=== PATIENT | female | born 1950 | race Caucasian/White ===

== ENCOUNTER 2017-07-23 17:49 | Emergency (ER) | payer OTHER ==
[~2017-07-23] VITALS: Ht 172.7 cm; Wt 64.9 kg
--- NOTE | 2017-07-23 17:49 | NUR ---
Patient BIBA ACLS, transferred to bed 9. RN evaluating patient at bedside.
--- NOTE | 2017-07-23 17:50 | NUR ---
PT FERNANDO FROM [facility] FOR HIGH BLOOD SUGER OF 500. EMS STATES THEIR BS WAS ALSO 500, UPON ASSESSMENT ACCU CHECK IS 487, DR RECIO NOTIFIED, NEW ORDERS TO BE CARRIED OUT. PT WITH 20G IV TO LFA. DENIES SOB OR DIZZINESS. PT REPORTS MILD INTERMITTEN N/V. PLACED ON ALL MONITORS, VS STABLE. PENDING MD ANGEL
[2017-07-23 17:53] VITALS: BP 131/74
[2017-07-23] MEDS ORDERED: ONDANSETRON 4 MG/2 ML VIAL IVP ONE (18:20)
[2017-07-23] MEDS ORDERED: NACL 0.9% 1,000 ML IV ONE (18:20)
--- NOTE | 2017-07-23 19:11 | NUR ---
REPORT GIVEN TO ROBBIE LEYVA, CARE TURNED OVER
--- NOTE | 2017-07-23 19:20 | NUR ---
PT RESTING COMFORTABLY IN BED, PT DENIES PAIN, RR EVEN AND UNLABORED. IVF INFUSING WELL. ALL NEEDS MET AT THIS TIME.
[2017-07-23 19:22] LABS: BASOPHILS # (AUTO) 0.1 K/uL (0.00-0.22); EOSINOPHILS # (AUTO) 0.2 K/uL (0-0.4); EOSINOPHILS % (AUTO) 2.8 % (0.0-4.0); HEMATOCRIT 45.2 % (36-48); HEMOGLOBIN 15.6 g/dL (12.0-16.0); LYMPHOCYTES # (AUTO) 2.6 K/uL (2.5-16.5); LYMPHOCYTES % (AUTO) 42.5 % (20.5-51.1); MEAN CORPUSCULAR HEMOGLOBIN 34 pg (27-31); MEAN CORPUSCULAR HGB CONC 35 g/dL (33-37); MEAN CORPUSCULAR VOLUME 97.2 fL (80-94); NEUTROPHILS # (AUTO) 2.3 K/uL (1.8-7.7); NEUTROPHILS % (AUTO) 37.7 % (42.2-75.2); PLATELET COUNT (AUTO) 135 K/uL (140-450); RED BLOOD CELL COUNT(AUTO) 4.65 MIL/uL (4.20-5.40); WHITE BLOOD COUNT (AUTO) 6.1 K/uL (4.8-10.8)
[2017-07-23] MEDS ORDERED: INSULIN REGULAR, HUMAN 100 UNIT/ML VIAL IVP ONE (19:35)
[2017-07-23 19:47] LABS: APPEARANCE,URINE CLEAR (CLEAR); BILIRUBIN,URINE NEGATIVE (NEGATIVE); BLOOD, URINE NEGATIVE (NEGATIVE); COLOR,URINE YELLOW (YELLOW); LEUKOCYTE ESTERASE ,URINE NEGATIVE (NEGATIVE); NITRITE, URINE NEGATIVE (NEGATIVE); PH,URINE 5.5 (5.0-9.0); UGLUCOSE NEGATIVE (NEGATIVE)
[2017-07-23 19:50] LABS: ANION GAP 10.7 (8-16); ASPARTATE AMINOTRANSFERASE 60 U/L (15-37); CARBON DIOXIDE 30.4 mmol/L (21-32); CHLORIDE 98 mmol/L (98-107); CREATININE 1.7 mg/dL (0.6-1.3); GFR ARICAN-AMERICAN 39 mL/min (>90); POTASSIUM 3.1 mmol/L (3.5-5.1); SODIUM SERUM 136 mmol/L (136-145); TOTAL BILIRUBIN 0.6 mg/dL (0.0-1.0)
[2017-07-23 19:52] LABS: GLUCOSE 521 mg/dL (74-106); UREA NITROGEN, BLOOD 65 mg/dL (7-18)
[2017-07-23 19:55] LABS: ACETONE, SERUM NEGATIVE (NEGATIVE)
--- NOTE | 2017-07-23 21:09 | NUR ---
PT RESTING COMFORTABLY, DENIES PAIN. BLOOD GLUCOSE 330 AT THIS TIME AFTER REGULAR INSULIN IVP, DR THORNE MADE AWARE
--- NOTE | 2017-07-23 22:24 | NUR ---
PT RESTING COMFORTABLY, RR EVEN AND UNLABORED. ALL NEEDS MET AT THIS TIME.
--- NOTE | 2017-07-23 22:24 | NUR ---
CALLED PT'S SISTER ELIZABETH ESTEVEZ , NOTIFIED THAT PT MAY DISCHARGED SOON, PT'S SISTER STATED THAT SHE IS UNABLE TO PROVIDE TRANSPORT AT THIS TIME OR PT'S OTHER CONTACT PRAVEENA LENNON. AGREED TO HAVE TRANSPORT ARRANGED BACK TO [facility]. CALLED [facility], STATED THAT THEY ARE ABLE TO TAKE PT BACK. PAY PER CLICK STRATEGIST AWARE TO ARRANGE TRANSPORT
--- NOTE | 2017-07-23 23:16 | NUR ---
PT RESTING COMFORTABLY, BLOOD GLUCOSE 268, PT ABLE TO URINATE 500ML CLEAR YELLOW URINE VIA COMMODE. BEN CALLED FOR TRANSPORT BACK TO [facility], ETA 60 MINS.
--- NOTE | 2017-07-23 23:30 | NUR ---
CALLED REPORT TO JOVON AT [facility].
[2017-07-23 23:40] VITALS: BP 121/54
--- NOTE | 2017-07-23 23:40 | NUR ---
Patient discharged with v/s stable. Written and verbal after care instructions given and explained. Patient verbalized understanding. Ambulatory with 1 person assist to taxi service. All questions addressed prior to discharge. Advised to follow up with PMD. Jaden at [facility] made aware of pt's arrival.
== END 2017-07-23 23:40 | disposition home or self-care (01) ==
LOC: MED 17:49
DX: E11.65 Type 2 diabetes mellitus with hyperglycemia (principal); R11.0 Nausea; I10 Essential (primary) hypertension; E07.9 Disorder of thyroid, unspecified
CPT/HCPCS: 36415; 80053; 81003; 81025; 82009; 82803; 85025; 96361; 96374; 99284; J1815; J2405

== ENCOUNTER 2018-04-22 05:22 | Inpatient (IN) | payer OTHER, MEDICAID ==
[~2018-04-22] VITALS: Ht 165.1 cm; Wt 64.0 kg
[2018-04-22] MEDS ORDERED: NACL 0.9% 500 ML IV SCH (05:24)
--- NOTE | 2018-04-22 05:25 | NUR ---
PATIENT PRESENTS TO ED WITH ALOC .FERNANDO PATIENT CAME FROM [facility] FOR FALL, GENERALIZED WEAKNESS. PATIENT WAS LETHARGIC BUT ABLE TO FOLLOW COMMAND .PATIENT CAME WITH IV ON HER LEFT ARM 20G INFUSING WELL. DENIES N/V/D; SKIN IS PINK/WARM/DRY; LUNGS CLEAR BL; HR EVEN AND REGULAR; PT DENIES ANY FEVER, CP, SOB.I/O DONE PER ORDERED.EKG DONE ; VSS; PATIENT POSITIONED FOR COMFORT; HOB ELEVATED; BEDRAILS UP X2; BED DOWN. ER MD MADE AWARE OF PT STATUS.
[2018-04-22 05:30] VITALS: BP 139/48
--- NOTE | 2018-04-22 05:41 | NUR ---
EKG PERFORMED AT BEDSIDE. PT COVERED IN GOWN DURING PROCEDURE
[2018-04-22] MEDS ORDERED: MORPHINE SULFATE 4 MG/ML SYR IVP ONE (05:50)
[2018-04-22] MEDS ORDERED: LISI30TA6 PO (06:29)
[2018-04-22] MEDS ORDERED: GABA-638 PO (06:29)
[2018-04-22] MEDS ORDERED: SYN.1 PO ×2 (06:29→06:40)
[2018-04-22] MEDS ORDERED: AMYL-40 PO (06:40)
[2018-04-22] MEDS ORDERED: ORE25 PO (06:40)
[2018-04-22] MEDS ORDERED: SERT25TA84 PO (06:40)
[2018-04-22] MEDS ORDERED: LISI-420 PO (06:40)
[2018-04-22] MEDS ORDERED: ALBU0.0912 IH (06:40)
[2018-04-22] MEDS ORDERED: PROP20TA29 PO (06:40)
[2018-04-22] MEDS ORDERED: SIMV20TA1 PO (06:40)
[2018-04-22] MEDS ORDERED: FLUT1BLS IH (06:40)
[2018-04-22] MEDS ORDERED: LANTUS SUBQ (06:40)
[2018-04-22 07:17] LABS: APPEARANCE,URINE CLEAR (CLEAR); BILIRUBIN,URINE NEGATIVE (NEGATIVE); BLOOD, URINE NEGATIVE (NEGATIVE); COLOR,URINE YELLOW (YELLOW); LEUKOCYTE ESTERASE ,URINE NEGATIVE (NEGATIVE); NITRITE, URINE NEGATIVE (NEGATIVE); UGLUCOSE 3+ (NEGATIVE)
--- NOTE | 2018-04-22 07:30 | NUR ---
REPORT GIVEN TO JAMAR AVALOS. PATIENT IN STABLE CONDITION.
[2018-04-22 07:31] LABS: RBC,URINE 0-5 (RARE) /HPF (0-5); WBC,URINE 0-5 (RARE) /HPF (0-5)
--- NOTE | 2018-04-22 07:35 | NUR ---
4mg morphine wasted already given by RN Sarbjit earlier and charted late. Witnessed by ROBBIE Faria.
[2018-04-22 07:43] LABS: MEAN CORPUSCULAR VOLUME 103.5 fL (80-94); WHITE BLOOD COUNT (AUTO) 14.8 K/uL (4.8-10.8)
[2018-04-22 07:56] LABS: BASOPHILS % (AUTO) 0.1 % (0.0-2.0); EOSINOPHILS % (AUTO) 0.3 % (0.0-4.0); HEMOGLOBIN 13.4 g/dL (12.0-16.0); LYMPHOCYTES # (AUTO) 2.5 K/uL (2.5-16.5); MEAN CORPUSCULAR HEMOGLOBIN 34 pg (27-31); MEAN CORPUSCULAR HGB CONC 33 g/dL (33-37); MONOCYTES # (AUTO) 1.1 K/uL (0.8-1.0); MONOCYTES % (AUTO) 7.7 % (1.7-9.3); NEUTROPHILS # (AUTO) 11.1 K/uL (1.8-7.7); NEUTROPHILS % (AUTO) 74.9 % (42.2-75.2); PLATELET COUNT (AUTO) 206 K/uL (140-450); RED BLOOD CELL COUNT(AUTO) 3.96 MIL/uL (4.20-5.40); RED CELL DISTRIBUTION WIDTH 14.5 % (11.6-13.7)
[2018-04-22 07:58] LABS: PROTHROMBIN TIME 11.1 secs (10.8-13.4)
[2018-04-22 08:03] LABS: ALBUMIN 2.4 g/dL (3.4-5.0); ANION GAP 11.8 (8-16); CARBON DIOXIDE 29.4 mmol/L (21-32); CREATININE 1.9 mg/dL (0.6-1.3); POTASSIUM 3.2 mmol/L (3.5-5.1); TOTAL BILIRUBIN 0.7 mg/dL (0.0-1.0)
[2018-04-22] MEDS ORDERED: INSULIN REGULAR, HUMAN 100 UNIT/ML VIAL IVP ONE (08:10)
[2018-04-22] MEDS ORDERED: NACL 0.9% 2,000 ML IV SCH (08:10)
[2018-04-22] MEDS ORDERED: THIAMINE 200 MG/2 ML VIAL IM ONE (08:10)
--- NOTE | 2018-04-22 08:23 | NUR ---
AND JAMAR RN NOTIFIED OF LAB REPORT TROPONIN 0.124
[2018-04-22] MEDS ORDERED: KCL 20 MEQ/WATER INJ PREMIX 100 ML IV ONE (08:30)
--- NOTE | 2018-04-22 08:40 | NUR ---
22GA IV LEFT WRIST INFILTRATED---CATHETER REMOVED HEEL WARMER APPLIED TO SMALL SWELLING INFILTRATION SITE---PT DENIES PAIN AT THIS TIME
[2018-04-22 08:47] LABS: FREE T4 (FREE THYROXINE) 1.63 ng/dL (0.76-1.46); MAGNESIUM 2.2 mg/dL (1.8-2.4); THYROID STIMULATING HORMONE 0.16 uIU/mL (0.34-3.74)
[2018-04-22] MEDS ORDERED: NACL 0.9% 1,000 ML IV SCH (08:48)
[2018-04-22] MEDS ORDERED: ONDANSETRON 4 MG/2 ML VIAL IM/IVP PRN (08:50)
[2018-04-22] MEDS ORDERED: HYDROcodone/APAP 5/325 MG 1 TAB TAB PO PRN (08:50)
[2018-04-22] MEDS ORDERED: DOCUSATE SODIUM 100 MG GELCAP PO PRN (08:50)
[2018-04-22] MEDS ORDERED: LORazepam 2 MG/ML VIAL IM/IVP PRN (08:50)
--- NOTE | 2018-04-22 08:52 | NUR ---
2nd 1 liter 0.9% NS given via 18 g Lt ej inserted by ROBBIE Benson.
[2018-04-22] MEDS ORDERED: NITROGLYCERIN 0.4 MG TAB SL PRN (09:10)
--- NOTE | 2018-04-22 09:22 | NUR ---
PT TAKEN TO ICU BY ROBBIE ROLDAN AND EMT MK
[2018-04-22] MEDS ORDERED: INSULIN LISPRO SLIDING SCALE 100 UNITS/ML VIAL SUBQ PRN (09:30)
--- NOTE | 2018-04-22 09:30 | NUR ---
ADMITTED PT FROM ER BY NICO. PT LETHARGIC, ABLE TO FOLLOW COMMANDS BUT PT DOES WANT TO TALK. BEDSIDE MONITOR SHOWS SB-SR. ON O2 NC 2L/MIN. CLEAR LUNG SOUND .PT TEMP 97.0 F. GIVE PT EXTRA BLANKET. PT ABLE TO MOVE ALL HER EXTREMITIES, MRSA NARES COLLECTED. WILL CONTINUE TO MONITOR.
--- NOTE | 2018-04-22 09:30 | NUR ---
Patient will be admitted to care of Dr Mejia. Admited to ICU bed 5. Belongings list completed. Report to ROBBIE Arroyo.
--- NOTE | 2018-04-22 09:41 | NUR ---
FINGER BS CHECKED 403, DR. PIERRE MADE AWARE.
[2018-04-22 09:43] LABS: BARBITURATE, URINE NEG. ng/ml (NEG <=200); BENZODIAZEPINE, URINE NEG. ng/mL (NEG <=200); CANNABINOID, URINE NEG. ng/mL (NEG <=50); COCAINE, URINE NEG. ng/mL (NEG <=300); OPIATE, URINE NEG. ng/mL (NEG <=2000); PHENCYCLIDINE SCREEN,URINE NEG. ng/mL (NEG <=25)
[2018-04-22] MEDS: BLOOD GLUCOSE MONITORING 1 DEV DEV FS SCH ×8 (09:43→21:40)
[2018-04-22 09:49] LABS: CHOL/HDL RATIO 3.9 (1-4.5); FREE T4 (FREE THYROXINE) 1.65 ng/dL (0.76-1.46)
[2018-04-22 10:00] VITALS: BP 123/59
--- NOTE | 2018-04-22 11:38 | NUR ---
FINGER BS CHECKED 240, NOTIFIED , PER DR. PIERRE, PT NPO, DO NOT GIVE SLIDING INSULIN COVERAGE, WILL CARRY OUT.
[2018-04-22] MEDS ORDERED: TRAM50TA1 PO (11:40)
[2018-04-22] MEDS ORDERED: ALBUTEROL SULFATE/IPRATROPIU 3 ML SOL IH PRN (11:45)
[2018-04-22 11:48] LABS: ANION GAP 9.4 (8-16); CARBON DIOXIDE 29.4 mmol/L (21-32); CREATININE 1.6 mg/dL (0.6-1.3)
[2018-04-22] MEDS: PIPER/TAZO 2.25GM/D5W PREMIX 50 ML IV SCH ×2 (11:48→17:09)
[2018-04-22 11:49] LABS: POTASSIUM 2.8 mmol/L (3.5-5.1)
[2018-04-22 12:00] VITALS: BP 116/49
[2018-04-22] MEDS ORDERED: PIPER/TAZO 2.25GM/D5W PREMIX 50 ML IV SCH ×2 (12:00→13:00)
[2018-04-22] MEDS ORDERED: CLINICAL MONITORING MC PRN (12:05)
[2018-04-22] MEDS ORDERED: NACL 0.45% 1,000 ML IV SCH (12:25)
[2018-04-22] MEDS ORDERED: POTASSIUM CHLORIDE 40 MEQ, LIDOCAINE MPF 1% - 5 mL VIAL 25 MG in NACL 0.9% 250 ML IV SCH (13:15)
--- NOTE | 2018-04-22 15:20 | NUR ---
DR. RIVERA IN TO SEE PT, WILL FOLLOW UP.
[2018-04-22 16:00] VITALS: BP 109/61
[2018-04-22] MEDS ORDERED: LACTULOSE 20 GM/30 ML UDC PO SCH (16:00)
[2018-04-22] MEDS: DEXT 5% / NACL 0.45% 1,000 ML IV SCH (16:35)
--- NOTE | 2018-04-22 17:00 | NUR ---
PER. DR. PIERRE, HOLD INSULIN DUE TO PT NPO, WILL CARRY OUT.
--- NOTE | 2018-04-22 17:46 | NUR ---
BEDSIDE REPORT GIVEN TO ELIZABETH AVALOS. PT WILL BE TRANSFERRED TO [facility], ACCOMPANIED WITH CHARGE NURSE AND RN.
--- NOTE | 2018-04-22 17:55 | NUR ---
RECEIVED BEDSIDE REPORT FROM FOUNTAIN PEN TURNER. PATIENT BROUGHT TO [facility]. IN STABLE CONDITION. PATIENT NOT RESPONSIVE TO QUESTIONING BUT OBEYS COMMANDS. ABLE TO WALK FROM ICU BED TO [facility] BED WITH MODERATE ASSISTANCE. VITALS STABLE. NO C/O PAIN OR DISCOMFORT. SKIN INTACT. LUNGS CTA. ALL SAFETY PRECAUTIONS IN PLACE, WILL CONTINUE TO MONITOR.
[2018-04-22 18:00] VITALS: BP 121/70
--- NOTE | 2018-04-22 18:59 | NUR ---
PATIENT TRIED TO GET OUT OF BED. BED ALARM IS ON. REORIENTED PATIENT. PATIENT SETTLED BACK IN BED HERSELF. WHEN ASKED WHAT SHE NEEDS HELP WITH, PT IS UNABLE TO VERBALIZE.
--- NOTE | 2018-04-22 19:13 | NUR ---
ATIVAN IVP ADMINISTERED FOR RESTLESSNESS- PT TRYING TO GET OUT OUT OF BED.
--- NOTE | 2018-04-22 19:36 | NUR ---
ENDORSED POC TO PAY AGENT RN. PT IN STABLE CONDITION.
--- NOTE | 2018-04-22 19:40 | NUR ---
RECEIVED PT FROM ELIZABETH RN PT ALERT OX1 CONFUSED UNCOOOPERATIVE IV ON LEFT EXTERNAL JUGULAR INFUSING WELL ON TELETRY SR BED ALARM INITIAL ASSESSMENT DONE
[2018-04-22 20:00] VITALS: BP 133/52
[2018-04-22 20:33] LABS: ANION GAP 12.1 (8-16); CARBON DIOXIDE 25.8 mmol/L (21-32); CREATININE 1.4 mg/dL (0.6-1.3); POTASSIUM 3.9 mmol/L (3.5-5.1)
[2018-04-22] MEDS: GABAPENTIN 300 MG CAP PO SCH (21:54)
[2018-04-22] MEDS: METOPROLOL 25 MG TAB PO SCH (21:55)
--- NOTE | 2018-04-22 22:00 | NUR ---
SPONGE BATH GIVEN LINEN CHANGED PT HAD A BIG BM , REPOSITIONED Q2H
[2018-04-22] MEDS: INSULIN LISPRO SLIDING SCALE 100 UNITS/ML VIAL SUBQ PRN (22:05)
[2018-04-23] VITALS: BP 114/54
[2018-04-23] MEDS: PIPER/TAZO 2.25GM/D5W PREMIX 50 ML IV SCH ×2 (00:02→06:21)
[2018-04-23] MEDS: DEXT 5% / NACL 0.45% 1,000 ML IV SCH (00:09)
[2018-04-23] MEDS: INSULIN LISPRO SLIDING SCALE 100 UNITS/ML VIAL SUBQ PRN ×5 (01:05→23:43)
--- NOTE | 2018-04-23 01:31 | NUR ---
BLOOD SUGAR TEST 169 COVERAGE WITH 2 UNITS SUBQ HUMALOG FOLLOW PROTOCOL ON TELEMETRY SR INVERTED T
--- NOTE | 2018-04-23 01:32 | NUR ---
PT HAS LIQUID STOOL ON LACTULOSE SPONGE BATH GIVEN , LINEN CHANGED
[2018-04-23 04:00] VITALS: BP 150/68
[2018-04-23] MEDS: BLOOD GLUCOSE MONITORING 1 DEV DEV FS SCH ×7 (04:00→23:41)
--- NOTE | 2018-04-23 04:00 | NUR ---
PT SLEEPING REPOSITIONED AND LINEN CHANGED N TELE SB
--- NOTE | 2018-04-23 05:48 | NUR ---
SPONGE BATH GIVEN LINEN CHANGED A BIG BM IV ON LEFT EXTERNAL JUGULAR INFUSING WELL ON TELEMETRY SB
[2018-04-23] MEDS: NACL 0.45% 1,000 ML IV SCH ×2 (06:21→21:20)
[2018-04-23 06:28] LABS: BASOPHILS % (AUTO) 0.1 % (0.0-2.0); EOSINOPHILS # (AUTO) 0.3 K/uL (0-0.4); EOSINOPHILS % (AUTO) 1.7 % (0.0-4.0); HEMATOCRIT 27.4 % (36-48); HEMOGLOBIN 9.1 g/dL (12.0-16.0); LYMPHOCYTES # (AUTO) 3.6 K/uL (2.5-16.5); LYMPHOCYTES % (AUTO) 20.6 % (20.5-51.1); MEAN CORPUSCULAR HEMOGLOBIN 34 pg (27-31); MEAN CORPUSCULAR HGB CONC 33 g/dL (33-37); MONOCYTES # (AUTO) 1.3 K/uL (0.8-1.0); MONOCYTES % (AUTO) 7.3 % (1.7-9.3); NEUTROPHILS # (AUTO) 12.2 K/uL (1.8-7.7); NEUTROPHILS % (AUTO) 70.3 % (42.2-75.2); PLATELET COUNT (AUTO) 148 K/uL (140-450); RED BLOOD CELL COUNT(AUTO) 2.64 MIL/uL (4.20-5.40); WHITE BLOOD COUNT (AUTO) 17.3 K/uL (4.8-10.8)
--- NOTE | 2018-04-23 06:43 | NUR ---
PT WILL BE ENDORSED TO DAY SHIFT FOR CONTINUITY OF CARE
[2018-04-23 06:59] LABS: ANION GAP 8.3 (8-16); CARBON DIOXIDE 26.8 mmol/L (21-32); CREATININE 1.3 mg/dL (0.6-1.3); MAGNESIUM 1.6 mg/dL (1.8-2.4); PHOSPHORUS 1.4 mg/dL (2.5-4.9); POTASSIUM 3.1 mmol/L (3.5-5.1)
--- NOTE | 2018-04-23 07:10 | NUR ---
RECEIVED REPORT FROM PIANOS AND ORGANS SALESPERSON NURSE. PATIENT LYING DOWN IN BED SLEEPING, AROUSABLE BY VOICE. NO DISTRESS NOTED. AAOX1, CALM, COOPERATIVE, SKIN COLOR APPROPRIATE TO ETHNICITY, WARM TO TOUCH. SKIN IS INTACT. LUNGS CTA ON ALL LOBES. IV SITE INTACT, PATENT, AND INFUSING IVF PER MD ORDERS. ABDOMEN SOFT. STEINBERG CATHETER IN PLACE. SAFETY MEASURES IN PLACE, CALL LIGHT WITHIN REACH. WILL CONTINUE TO MONITOR.
[2018-04-23] MEDS ORDERED: VANCOMYCIN PER PHARMACY MC PRN (07:15)
[2018-04-23 08:00] VITALS: BP 117/47
--- NOTE | 2018-04-23 08:06 | NUR ---
PATIENT HAS BEEN SCREENED AND CATEGORIZED HIGH NUTRITION RISK. PATIENT WILL BE SEEN WITHIN 1-2 DAYS OF ADMISSION. 04/23/[address]
[2018-04-23 08:15] LABS: T4 (THYROXINE) 8.2 ug/dL (4.5-12.0)
[2018-04-23] MEDS: PANTOPRAZOLE 40 MG INJ VIAL IVP SCH (08:34)
--- NOTE | 2018-04-23 08:41 | NUR ---
DR. CODY AND DR. CASTANEDA AT BEDSIDE REVIEWING PLAN OF CARE WITH PATIENT. PATIENT DIFFICULT TO AROUSE EVEN WITH PAIN. LANTUS INSULIN NOT GIVEN AT THIS TIME DUE TO DECREASED GLUCOSE AND PATIENT IS NPO. WILL CONTINUE TO MONITOR.
[2018-04-23] MEDS: METOPROLOL 25 MG TAB PO SCH ×2 (08:46→21:12)
[2018-04-23] MEDS: LISINOPRIL 20 MG TAB PO SCH (08:46)
[2018-04-23] MEDS ORDERED: RIFAXIMIN 550 MG TAB PO SCH (09:00)
[2018-04-23] MEDS ORDERED: ASPIRIN 81 MG TAB.CHEW PO SCH (09:00)
[2018-04-23] MEDS ORDERED: LISINOPRIL 5 MG TAB PO SCH (09:00)
[2018-04-23] MEDS ORDERED: INSULIN LANTUS 100 UNITS/ML 10 ML VIAL SUBQ SCH (09:00)
[2018-04-23] MEDS ORDERED: LACTULOSE 20 GM/30 ML UDC PO SCH (09:00)
[2018-04-23] MEDS: VANCOMYCIN 750 MG in DEXTROSE 5% 250 ML IV SCH (09:32)
--- NOTE | 2018-04-23 09:50 | NUR ---
ASSISTED PHOTOLITHOGRAPHER IN CLEANING PATIENT. NGTUBE INSERTED PER MD ORDERS. AWAITING FOR XRAY CONFIRMATION FOR NGTUBE PLACEMENT BEFORE ADMINISTERING MEDICATIONS THROUGH NGTUBE. WILL CONTINUE TO MONITOR.
[2018-04-23] MEDS ORDERED: SODIUM PHOS / POTASSIUM PHOS 1 PKT PDR PO SCH (10:52)
[2018-04-23] MEDS ORDERED: MAG SULF 2000 MG/WATER PREMIX 50 ML IV SCH (11:00)
[2018-04-23] MEDS ORDERED: cefTRIAXone 2,000 MG in DEXTROSE 5% 100 ML IV SCH (11:00)
[2018-04-23] MEDS ORDERED: POTASSIUM CHLORIDE 40 MEQ, LIDOCAINE 1% 25 MG in NACL 0.9% 250 ML IV SCH (11:30)
[2018-04-23] MEDS: LACTOBACILLUS RHAMNOSUS GG 1 EACH CAP PO SCH (11:30)
[2018-04-23] MEDS: HYDROCHLOROTHIAZIDE 25 MG TAB PO SCH (11:30)
[2018-04-23] MEDS: levETIRAcetam 500 MG TAB PO SCH ×2 (11:30→21:12)
[2018-04-23] MEDS: LACTULOSE 20 GM/30 ML UDC PO SCH ×3 (11:30→22:04)
[2018-04-23] MEDS: GABAPENTIN 300 MG CAP PO SCH ×2 (11:31→21:12)
[2018-04-23] MEDS: ATORVASTATIN 20 MG TAB PO SCH (11:31)
--- NOTE | 2018-04-23 11:51 | NUR ---
PATIENT LYING DOWN IN BED SLEEPING, LETHARGIC. NGTUBE TIP IS IN STOMACH. SCHEDULED MEDICATIONS DUE GIVEN. ECHOCARDIOGRAM BEING DONE AT BEDSIDE AT THIS TIME. WILL CONTINUE TO MONITOR.
[2018-04-23] MEDS: AMPICILLIN 2,000 MG in NACL 0.9% 100 ML IV SCH ×2 (12:54→18:00)
--- NOTE | 2018-04-23 13:14 | NUR ---
S.T. NOTE Physician order for bedside swallow eval received, chart reviewed, attempted once at 12:30 while pt was having abd US performed and again from [id number]. Pt obtunded; unarousable to multiple stimuli and noted to have had a large BM. D/w family (sister and [id number]) that pt is not appropriate for eval at this time with plan to reattempt tomorrow if appropriate. Notified ROBBIE Muñoz re: holding eval and reattempting tomorrow, as well as pt's BM.
[2018-04-23] MEDS: SODIUM PHOS / POTASSIUM PHOS 1 PKT PDR PO SCH ×2 (13:54→22:05)
--- NOTE | 2018-04-23 14:01 | NUR ---
PATIENT HAD A LARGE BM, MAROON COLOR. NOTIFIED MD AND COLLECTED OCCULT BLOOD SAMPLE. ASSISTED EXPLOSIVES TRUCK DRIVER IN CLEANING AND REPOSITIONING PATIENT. SCHEDULED MEDICATIONS DUE GIVEN. WILL CONTINUE TO MONITOR.
--- NOTE | 2018-04-23 14:07 | NUR ---
04/23/18 INITIAL ASSESSMENT COMPLETED PLEASE REFER TO NUTRITION ASSESSMENT UNDER CARE ACTIVITY FOR ESTIMATED NUTRITIONAL NEEDS. 1. CONTINUE GLUCERNA 1.2 @ 55 ML/HR - THIS WILL PROVIDE 1584 KCALS AND 79 G PROTEIN. THIS WILL MEET 100% OF ESTIMATED ENERGY AND PROTEIN NEEDS. 2. CONTINUE FLUSH [address] TO FOLLOW-UP 2-3 DAYS, HIGH RISK EVI TIRADO RD
[2018-04-23 19:03] LABS: ANION GAP 7.2 (8-16); CARBON DIOXIDE 27.8 mmol/L (21-32)
[2018-04-23 19:04] LABS: CREATININE 1.5 mg/dL (0.6-1.3)
--- NOTE | 2018-04-23 19:45 | NUR ---
RECEIVED REPORT FROM ROBBIE MARTÍNEZ FOR CONTINUITY OF CARE. PT NONVERBAL, DOES NOT RESPOND TO STIMULI, NYSTAGMUS NOTED. PT ON ROOM AIR, PER DAY SHIFT RN PT HAS BEEN LIKE THIS THROUGHOUT SHIFT BUT HE WAS TOLD PT WAS ALERT AND CONFUSED LAST NIGHT. PT IS UNABLE TO MAKE NEEDS KNOWN, UNABLE TO FOLLOW ANY COMMANDS. DOES NOT RESPOND TO PAIN. NGT IN PLACE, NO TUBE FEEDING STARTED YET. PT IS TO BE NPO AFTER MIDNIGHT. LARGE WATERY BM NOTED, COLORS BLACK AND RED IN STOOL. FUNGI NOTED IN TOENAILS, BUT SKIN IS INTACT. PT HAS A LEFT EJ 18G IV, ASYMPTOMATIC AND INTACT. VITAL SIGNS WITHIN NORMAL LIMITS. PT STABLE, FLACC 0, NO SIGNS OF DISTRESS NOTED AT THIS TIME. PT POSITIONED FOR COMFORT. BED IN LOWEST POSITION, BED ALARM ON. WILL CONTINUE TO MONITOR.
--- NOTE | 2018-04-23 20:35 | NUR ---
PT TO CT. WILL GO WITH PT, PT TO BE TRANSFERRED TO ICU AFTER CT.
--- NOTE | 2018-04-23 21:07 | NUR ---
TRANSFERRED PT FROM CT TO ICU, GAVE REPORT TO ANTIQUE COLLECTORROBBIE NORTON.
--- NOTE | 2018-04-23 21:10 | NUR ---
PATIENT TRANSFERRED FROM [facility] VIA [facility] WITH 2 ASSISTANCE. PATIENT UNRESPONSIVE, NON SPONTANEOUS EYES OPENING. BILATERAL LUNGS SOUND CLEAR, ON ROOM AIR, BREATHING EVEN AND UNLABORED. NO ACUTE DISTRESS NOTED. NGT TO LEFT NARE, PLACEMENT CHECKED, NO RESIDUAL AT THIS TIME. SKIN IS WARM TO TOUCH AND INTACT. STEINBERG CATH IN PLACE WITH CLEAR YELLOW URINE NOTED. ACTIVE BOWEL SOUND FROM ALL 4QUADS. HOB ELEVATED, BED IN LOW POSITION, CALL LIGHT WITHIN REACH. WILL CONTINUE TO MONITOR.
--- NOTE | 2018-04-23 21:20 | NUR ---
ADMINISTERED SCHEDULED MEDICATIONS ORDERED VIA NGT. TOLERATED WELL. NO ACUTE DISTRESS NOTED. FLACC 0.
--- NOTE | 2018-04-23 21:45 | NUR ---
ORDER FROM DR GARCIA; GI; IN THE CHART, TO GIVE PT 80MG IVP PROTONIX THEN START IV DRIP AT 8MG/HR; VERIFIED WITH DR PIERRE THE DOSE ON THE PROTONIX IVP; SAID OK TO ADMIN 80MG IVP.CARRIED OUT.
--- NOTE | 2018-04-23 21:50 | NUR ---
STARTED TUBE FEEDING ORDERED, GLUCERNA 1.2 10ML/HR WITH WATER FLUSH 110ML Q6HR. GOAL IS 55ML/HR, WLL INCREASE EVERY HOURLY. WILL CONTINUE TO MONITOR.
[2018-04-23 22:00] VITALS: BP 153/60
[2018-04-23] MEDS ORDERED: PANTOPRAZOLE 40 MG INJ VIAL IVP SCH (22:15)
[2018-04-23] MEDS: PANTOPRAZOLE 80 MG in NACL 0.9% 100 ML IV SCH (22:20)
--- NOTE | 2018-04-23 22:20 | NUR ---
ADMINISTERED PROTONIX IVP AND DRIP ORDERED. WILL CONTINUE TO MONITOR.
[2018-04-23] MEDS ORDERED: PANTOPRAZOLE 40 MG INJ VIAL ONE (22:24)
[2018-04-23 22:45] LABS: HEMATOCRIT 29.5 % (36-48); HEMOGLOBIN 9.8 g/dL (12.0-16.0)
--- NOTE | 2018-04-23 22:50 | NUR ---
DR. PARADA AT BEDSIDE WITH TO CHECK THE PATIENT, WILL CONTINUE TO MONITOR. Addendum: 04/23/18 at 2305 by Maelna Santiago RN INCREASED TUBE FEEDING TO 20ML/HR.
[2018-04-23] MEDS ORDERED: NACL 0.9% IV SCH (23:00)
[2018-04-23] MEDS ORDERED: ACYCLOVIR IV SCH (23:00)
[2018-04-23] MEDS ORDERED: ACYCLOVIR 500 MG VIAL IV ONE ×2 (23:27→23:40)
[2018-04-24] VITALS (12 sets, daily range): BP systolic 104–153; BP diastolic 50–78
--- NOTE | 2018-04-24 | NUR ---
BS CHECKED 193, ADMINISTERED 2 UNITS OF INSULIN AND IV ABX ORDERED. NO ACUTE DISTRESS NOTED. SB ON THE MONITOR. WILL CONTINUE TO MONITOR.
[2018-04-24 00:17] LABS: HEMATOCRIT 27.5 % (36-48)
[2018-04-24] MEDS: AMPICILLIN 2,000 MG in NACL 0.9% 100 ML IV SCH ×6 (00:56→20:48)
[2018-04-24] MEDS: NACL 0.45% 1,000 ML IV SCH ×3 (02:30→20:49)
--- NOTE | 2018-04-24 03:00 | NUR ---
TUBE FEEDING REACHED TO GOAL 55ML/HR AT THIS TIME. RESIDUAL 10CC NOTED. SB ON THE MONITOR. NO ACUTE DISTRESS NOTED BUT STILL LETHARGIC. FLACC 0. WILL CONTINUE TO MONITOR.
[2018-04-24] MEDS: BLOOD GLUCOSE MONITORING 1 DEV DEV FS SCH ×5 (03:47→20:49)
[2018-04-24] MEDS: INSULIN LISPRO SLIDING SCALE 100 UNITS/ML VIAL SUBQ PRN ×5 (03:47→21:12)
--- NOTE | 2018-04-24 05:00 | NUR ---
PROVIDED MORNING CARE, SMALL AMOUNT BLACK AND RED COLOR LIQUID BM NOTED. BS CHECKED 154 NOTED, ADMINISTERED 2UNIT OF INSULIN. WILL CONTINUE TO MONITOR.
[2018-04-24] MEDS: LEVOTHYROXINE 0.088 MG TAB PO SCH (05:47)
[2018-04-24 06:23] LABS: BASOPHILS % (AUTO) 0.2 % (0.0-2.0); EOSINOPHILS # (AUTO) 0.9 K/uL (0-0.4); EOSINOPHILS % (AUTO) 5.3 % (0.0-4.0); HEMATOCRIT 26.5 % (36-48); HEMOGLOBIN 8.8 g/dL (12.0-16.0); LYMPHOCYTES # (AUTO) 5.1 K/uL (2.5-16.5); MEAN CORPUSCULAR HEMOGLOBIN 35 pg (27-31); MEAN CORPUSCULAR HGB CONC 33 g/dL (33-37); MEAN CORPUSCULAR VOLUME 104.9 fL (80-94); MONOCYTES # (AUTO) 1.9 K/uL (0.8-1.0); MONOCYTES % (AUTO) 10.9 % (1.7-9.3); NEUTROPHILS # (AUTO) 9.6 K/uL (1.8-7.7); NEUTROPHILS % (AUTO) 54.6 % (42.2-75.2); PLATELET COUNT (AUTO) 136 K/uL (140-450); RED BLOOD CELL COUNT(AUTO) 2.53 MIL/uL (4.20-5.40); RED CELL DISTRIBUTION WIDTH 14.7 % (11.6-13.7); WHITE BLOOD COUNT (AUTO) 17.6 K/uL (4.8-10.8)
[2018-04-24 07:19] LABS: CARBON DIOXIDE 27.7 mmol/L (21-32); CREATININE 1.2 mg/dL (0.6-1.3)
[2018-04-24 07:27] LABS: MAGNESIUM 2.1 mg/dL (1.8-2.4); PHOSPHORUS 2.7 mg/dL (2.5-4.9)
--- NOTE | 2018-04-24 07:30 | NUR ---
RECEIVED REPORT FROM VENEER JOINER NURSE AT BEDSIDE, PT IS LETHARGIC, UNABLE TO FOLLOW COMMANDS AND MAKE NEEDS KNOWN, VSS, FLACC 0, NO S/S OF DISTRESS, DIMINISHED LUNG SOUNDS DARVIN. ON RA, O2 SAT 97%, SB ON RETOUCHING OPERATOR, SOFT ABDOMEN WITH ACTIVE BOWEL SOUNDS, NGT TO LEFT NARES, PLACEMENT CHECKED, RUNNING GLUCERNA AT 55ML/HR, 0 ML RESIDUALS AT THIS TIME, F/C IN PLACE, CLEAR YELLOW URINE NOTED VIA GRAVITY, SKIN IS WARM AND DRY TO TOUCH, NO OPEN WOUND PRESENT, IV SITE TO LEFT EJ 18GA, PATENT AND SL, IV TO RIGHT HAND 22GA, RUNNING PROTONIX AT 10ML/HR AND 1/2 NS AT 100ML/HR, GENERALIZED WEAKNESS NOTED TO ALL EXTREMITIES, HOB ELEVATED TO 30 DEGREES, SAFETY MEASURES IN PLACE, WILL CONTINUE TO MONITOR.
[2018-04-24] MEDS: PANTOPRAZOLE 80 MG in NACL 0.9% 100 ML IV SCH (08:08)
[2018-04-24] MEDS: METOPROLOL 25 MG TAB PO SCH ×2 (08:16→21:38)
[2018-04-24] MEDS: LACTULOSE 20 GM/30 ML UDC PO SCH (08:19)
[2018-04-24] MEDS: cefTRIAXone 2,000 MG in DEXTROSE 5% 100 ML IV SCH ×2 (08:19→21:21)
[2018-04-24] MEDS: PANTOPRAZOLE 40 MG INJ VIAL IVP SCH ×2 (08:19→20:48)
[2018-04-24] MEDS: LACTOBACILLUS RHAMNOSUS GG 1 EACH CAP PO SCH (08:20)
[2018-04-24] MEDS: HYDROCHLOROTHIAZIDE 25 MG TAB PO SCH (08:20)
[2018-04-24] MEDS: ATORVASTATIN 20 MG TAB PO SCH (08:20)
[2018-04-24] MEDS: levETIRAcetam 500 MG TAB PO SCH ×2 (08:20→20:47)
[2018-04-24] MEDS: LISINOPRIL 20 MG TAB PO SCH (08:21)
[2018-04-24] MEDS: GABAPENTIN 300 MG CAP PO SCH ×2 (08:21→20:47)
--- NOTE | 2018-04-24 08:35 | NUR ---
DR. LANDAVERDE CAME IN TO SEE PT AT BEDSIDE, WILL FOLLOW UP WITH NEW ORDERS.
[2018-04-24 08:36] LABS: POTASSIUM 2.7 mmol/L (3.5-5.1)
[2018-04-24] MEDS ORDERED: LACTULOSE 20 GM/30 ML UDC PO SCH ×2 (08:43→09:00)
[2018-04-24] MEDS ORDERED: POTASSIUM CHLORIDE 20% 40 MEQ/15 ML UDC GT SCH (08:43)
[2018-04-24] MEDS: VANCOMYCIN 750 MG in DEXTROSE 5% 250 ML IV SCH (08:44)
[2018-04-24] MEDS ORDERED: POTASSIUM CHLORIDE 40 MEQ, LIDOCAINE MPF 1% - 5 mL VIAL 25 MG in NACL 0.9% 250 ML IV SCH ×7 (09:00→11:00)
[2018-04-24] MEDS ORDERED: INSULIN LANTUS 100 UNITS/ML 10 ML VIAL SUBQ SCH ×3 (09:00→09:16)
[2018-04-24] MEDS ORDERED: NACL 0.9% IV SCH ×3 (09:00→21:00)
[2018-04-24] MEDS ORDERED: ACYCLOVIR IV SCH ×3 (09:00→21:00)
--- NOTE | 2018-04-24 09:00 | NUR ---
DR. CHILDRESS CAME IN TO SEE PT AT BEDSIDE, WILL FOLLOW UP WITH NEW ORDERS.
--- NOTE | 2018-04-24 09:25 | NUR ---
RECEIVED ORDER FOR MRI BRAIN WITHOUT CONTRAST. I CALLED LYNN AT [facility] AND SHE SAID FOR TODAY, HER TECH COMES IN AT 6P.M. AND TOMORROW AT 5P.M. I CALLED [facility] AND SPOKE WITH TANIYA IN RADIOLOGY. THEY DO HAVE OPENING AFTER 10A.M.. I FAXED FACE SHEET, ORDER, QUESTIONAIR TO HER AT [phone]. PHONE [phone]. I CALLED [facility] AND SET UP TRANSPORT, [facility], FOR 10:15A.M. AND I INFORMED TANIYA AT [facility]. [facility] TO STOP IN ER FIRST AND THEY WILL DIRECT THEM TO MRI. I CALLED [facility] AND SPOKE WITH TRINI/DELMAR, [phone], AND INFORMED HER OF THE ORDER FOR MRI AND WE WOULD SEND THE PATIENT OUT FOR THE MRI AND THEN TO RETURN HERE.
[2018-04-24] MEDS ORDERED: PANTOPRAZOLE 40 MG INJ VIAL IVP ONE (09:30)
--- NOTE | 2018-04-24 10:00 | NUR ---
NO S/S OF DISTRESS, VSS, FLACC 0, POSITION CHANGED FOR OFF LOAD PRESSURE.
[2018-04-24] MEDS: SODIUM PHOS / POTASSIUM PHOS 1 PKT PDR PO SCH ×2 (10:25→13:00)
--- NOTE | 2018-04-24 11:44 | NUR ---
RECEIVED A CALL EARLIER THAT [facility] WILL BE DELAYED ABOUT 1 HOUR. I CALLED [facility] AND INFORMED THEM. [facility] HERE TO ARTS AND CRAFTS TEACHER PATIENT NOW. I CALLED [facility] AND SPOKE WITH TANIYA AND TOLD HER THE PATIENT WAS BEING PICKED UP NOW. SHE CHECKED WITH THE TECH, STILL OKAY TO SEND PATIENT. I ALSO INFORMED HER THAT THE PATIENT IS IN DROPLET PRECAUTIONS IN ICU.
--- NOTE | 2018-04-24 11:45 | NUR ---
PT LEFT UNIT WITH [facility] FOR MRI IN [facility], ALL IV MEDICATION AND TUBE FEEDING HELD AT THIS TIME, PT IS STILL LETHARGIC, ABLE TO RESPOND BY NAME, VSS, FLACC 0. ALL THE METAL MATERIES REMOVED.
--- NOTE | 2018-04-24 13:50 | NUR ---
PT IS BACK FROM MRI, POSITIVE RESULT FOR MENINGITIS, PT IS AAOX1, ABLE TO FOLLOW COMMANDS AND MAKE NEEDS KNOW AT THIS TIME, DENIES PAIN, VSS. WILL CONTINUE IV MEDICATIONS.
[2018-04-24 15:00] LABS: HEMATOCRIT 28.5 % (36-48); HEMOGLOBIN 9.3 g/dL (12.0-16.0)
--- NOTE | 2018-04-24 16:00 | NUR ---
PT IS RESTING IN BED, NO S/S OF DISTRESS, VSS, DENIES PAIN, PM AND F/C CARE PROVIDED, POSITION CHANGED FOR OFF LOAD PRESSURE.
[2018-04-24 16:29] LABS: ANION GAP 4.3 (8-16); CARBON DIOXIDE 28.4 mmol/L (21-32); CREATININE 1.3 mg/dL (0.6-1.3); POTASSIUM 3.7 mmol/L (3.5-5.1)
--- NOTE | 2018-04-24 18:00 | NUR ---
PT IS MORE ALERT AND AWAKE, NO S/S OF DISTRESS, DENIES PAIN, VSS, POSITION CHANGED FOR OFF LOAD PRESSURE.
--- NOTE | 2018-04-24 18:50 | NUR ---
DR. JASON CAME IN TO SEE PT AT BEDSIDE, WILL FOLLOW UP WITH NEW ORDERS.
--- NOTE | 2018-04-24 19:25 | NUR ---
RECEIVED BEDSIDE REPORT FROM MORNING SHIFT RNANASTASIIA, FOR CONTINUITY OF CARE. PT AWAKE, AAOX2, TO NAME AND HOSPITAL LOCATION. ON ROOM AIR. SR ON VICE PRESIDENT OF SALES. ABLE TO RESPOND TO COMMANDS/MAKE NEEDS KNOWN. LUNG SOUND DIMINSHED ON UPPER/LOWER BILATERAL LOBES. NGT IN PLACE, NO RESIDUAL, GLUCERNA AT 55ML/HR. BOWEL SOUND HYPOACTIVE. BM IS SMALL, LOOSE, DARK RBOWN. STEINBERG CATH IN PLACE, LIGHT WANDER IN COLOR. LEFT EJ INTACT, SALINE FLUSHED. RIGHT HAND [address], INFUSING 1/2NS AT 125ML/HR, WITH BLOOD RETURN. HOB ELEVATED, BED IN LOWEST POSITION, SCDS ON BILATERAL LEGS. SIDE RAILS UP X4. SKIN IS NORMAL IN COLOR, WARM TO TOUCH, & INTACT. DROPLET PRECAUTIONS MAINTAINED.
--- NOTE | 2018-04-24 19:25 | NUR ---
REPORT GIVEN TO ROPE MAKER NURSE AT BEDSIDE FOR CONTINUE OF CARE, PT IS IN STABLE CONDITION AT THIS TIME.
--- NOTE | 2018-04-24 20:19 | NUR ---
DR PARADA AT BEDSIDE TO SEE PATIENT, AOX 2-3, UPDATED ON PT CONDITION.
[2018-04-24 21:08] LABS: HEMATOCRIT 27.8 % (36-48); HEMOGLOBIN 9.1 g/dL (12.0-16.0)
--- NOTE | 2018-04-24 21:39 | NUR ---
DJ=791/82, RR=15, SATING 97%, HR=71. LOPRESSOR GIVEN PER ORDER.
--- NOTE | 2018-04-24 22:50 | NUR ---
2ND BOWEL MOVEMENT, SMALL, LOOSE, DARK BROWN STOOL. PT ABLE TO ASSIST IN REPOSITIONING. ORAL MOUTH MOISTURIZER GIVEN TO PT DUE TO C/O TONGUE/MOUTH DRYNESS.
[2018-04-24] MEDS: MORPHINE SULFATE 2 MG/ML SYR IVP PRN (22:59)
[2018-04-25] VITALS (9 sets, daily range): BP systolic 119–174; BP diastolic 43–81
[2018-04-25] MEDS: BLOOD GLUCOSE MONITORING 1 DEV DEV FS SCH ×6 (00:08→20:45)
[2018-04-25] MEDS: INSULIN LISPRO SLIDING SCALE 100 UNITS/ML VIAL SUBQ PRN ×6 (00:20→20:46)
--- NOTE | 2018-04-25 01:22 | NUR ---
PT IS SLEEPING, AFEBRILE, VSS, REPOSITIONED FOR PATIENT COMFORT AND PILLOW SUPPORT PROVIDED.
[2018-04-25] MEDS: MORPHINE SULFATE 2 MG/ML SYR IVP PRN ×2 (03:07→08:21)
[2018-04-25] MEDS: NACL 0.45% 1,000 ML IV SCH (03:42)
--- NOTE | 2018-04-25 03:55 | NUR ---
PT AWAKE AT BEDSIDE,AFEBRILE, PAIN MED GIVEN. STEINBERG CATH AND ORAL CARE PROVIDED. SMALL SMEAR ON PAD AND FRESH LINEN/GOWN GIVEN TO PT. PT IS ASSIST OF 1 WITH CARES. AAOX3.
[2018-04-25 06:01] LABS: BASOPHILS % (AUTO) 0.3 % (0.0-2.0); EOSINOPHILS # (AUTO) 0.8 K/uL (0-0.4); EOSINOPHILS % (AUTO) 6.2 % (0.0-4.0); HEMATOCRIT 24.5 % (36-48); LYMPHOCYTES # (AUTO) 3.7 K/uL (2.5-16.5); MEAN CORPUSCULAR HEMOGLOBIN 35 pg (27-31); MEAN CORPUSCULAR HGB CONC 33 g/dL (33-37); MEAN CORPUSCULAR VOLUME 105.7 fL (80-94); MONOCYTES # (AUTO) 1.4 K/uL (0.8-1.0); MONOCYTES % (AUTO) 11.3 % (1.7-9.3); NEUTROPHILS # (AUTO) 6.4 K/uL (1.8-7.7); NEUTROPHILS % (AUTO) 52.2 % (42.2-75.2); PLATELET COUNT (AUTO) 130 K/uL (140-450); RED BLOOD CELL COUNT(AUTO) 2.32 MIL/uL (4.20-5.40); RED CELL DISTRIBUTION WIDTH 15.2 % (11.6-13.7); WHITE BLOOD COUNT (AUTO) 12.2 K/uL (4.8-10.8)
[2018-04-25 06:08] LABS: MAGNESIUM 1.9 mg/dL (1.8-2.4); PHOSPHORUS 2.3 mg/dL (2.5-4.9)
[2018-04-25 06:10] LABS: ANION GAP 6.7 (8-16); CARBON DIOXIDE 25.5 mmol/L (21-32); POTASSIUM 3.2 mmol/L (3.5-5.1)
--- NOTE | 2018-04-25 06:38 | NUR ---
AT BEDSIDE TO SEE PT, UPDATED ON PT CONDITION. PT IS AWAKE AT BEDSIDE. SMALL, LOOSE BM, DARK BROWN IN COLOR. NO SIGNS OF BLOOD IN STOOL. 1 ASSIST, PT ABLE TO REPOSITION SELF IN BED, MOVE UPPER/LOWER EXTREMITIES.
[2018-04-25] MEDS: LEVOTHYROXINE 0.088 MG TAB PO SCH (06:59)
[2018-04-25] MEDS ORDERED: PROBIOTIC SCREEN 1 EA MISC MC PRN (07:20)
--- NOTE | 2018-04-25 07:25 | NUR ---
PROVIDED BEDSIDE REPORT FOR MORNING SHIFT RNLUIS CARLOS, FOR CONTINUITY OF CARE PT IN STABLE CONDITION AT THIS TIME.
--- NOTE | 2018-04-25 07:30 | NUR ---
RECEIVED BEDSIDE REPORT FROM NECKTIE STITCHER NURSE. PT IS AAOX3, ABLE TO FOLLOW COMMANDS AND MAKE NEEDS KNOWN. AFEBRILE. SR-SB ON BONDING SUPERVISOR. PT IS ON ROOM AIR. LUNG SOUNDS DIMINISHED BILATERALLY. ABDOMEN SOFT, NONTENDER WITH ACTIVE BOWEL SOUNDS. NGT IN PLACE TO LEFT NARES, PLACEMENT CONFIRMED, NO RESIDUALS NOTED. PT IS ON TF GLUCERNA AT 55ML/HR WITH WATER FLUSH 110 ML Q6H. STEINBERG CATH IN PLACE DRAINING CLEAR YELLOW URINE VIA GRAVITY. PERIPHERAL IVS G 22 TO RIGHT HAND AND LEFT EJ G18 PATENT AND INTACT. RUNNING 1/2NS AT 125 ML/HR. SKIN IS DRY AND WARM TO TOUCH. HOB ELEVATED TO 30 DEGREES, SAFETY MEASURES IN PLACE. CALL LIGHT WITHIN REACH. NO S/S OF DISTRESS NOTED AT THIS TIME. WILL CONTINUE TO MONITOR.
[2018-04-25] MEDS ORDERED: DEXTROSE 5% 1,000 ML IV SCH (08:05)
[2018-04-25 08:17] LABS: FOLIC ACID 8.9 ng/mL (>3.0)
[2018-04-25] MEDS: PANTOPRAZOLE 40 MG INJ VIAL IVP SCH ×2 (08:19→20:48)
[2018-04-25] MEDS: LACTULOSE 20 GM/30 ML UDC PO SCH (08:19)
[2018-04-25] MEDS: LISINOPRIL 20 MG TAB PO SCH (08:19)
[2018-04-25] MEDS: levETIRAcetam 500 MG TAB PO SCH (08:20)
[2018-04-25] MEDS: HYDROCHLOROTHIAZIDE 25 MG TAB PO SCH (08:20)
[2018-04-25] MEDS: GABAPENTIN 300 MG CAP PO SCH ×2 (08:20→20:49)
[2018-04-25] MEDS: METOPROLOL 25 MG TAB PO SCH ×2 (08:20→20:49)
[2018-04-25] MEDS: ATORVASTATIN 20 MG TAB PO SCH (08:20)
[2018-04-25] MEDS: LACTOBACILLUS RHAMNOSUS GG 1 EACH CAP PO SCH (08:20)
--- NOTE | 2018-04-25 08:25 | NUR ---
DR CODY MADE AWARE OF PATIENT'S K 3.2 AND PHOS 2.3 LEVELS. WILL FOLLOW UP WITH ORDERS
[2018-04-25] MEDS ORDERED: INSULIN LANTUS 100 UNITS/ML 10 ML VIAL SUBQ SCH ×2 (09:00)
[2018-04-25] MEDS ORDERED: ASCORBIC ACID 500 MG TAB PO SCH (09:00)
[2018-04-25] MEDS ORDERED: ASCORBIC ACID 500 MG/5 ML ORASYR NG SCH (09:15)
--- NOTE | 2018-04-25 09:20 | NUR ---
PT HAD A SMALL AMOUNT OF BROWN, LIQUID BOWEL MOVEMENT. CLEANED AND REPOSITIONED. PT TOLERATED WELL.
[2018-04-25] MEDS: SODIUM PHOS / POTASSIUM PHOS 1 PKT PDR PO SCH ×3 (09:24→16:08)
[2018-04-25] MEDS: SODIUM FERRIC GLUCONATE 125 MG in NACL 0.9% 100 ML IV SCH (09:25)
--- NOTE | 2018-04-25 09:30 | NUR ---
MEDICATIONS ADMINISTERED ORDERED. PT TOLERATED WELL.
[2018-04-25] MEDS: ACETAMINOPHEN 325 MG TAB PO PRN ×2 (10:44→16:55)
--- NOTE | 2018-04-25 10:52 | NUR ---
PT C/O MILD HEADACHE. TYLENOL ADMINISTERED ORDERED. WILL CONTINUE TO MONITOR.
[2018-04-25] MEDS ORDERED: POTASSIUM CHLORIDE 40 MEQ, LIDOCAINE 1% 25 MG in NACL 0.9% 250 ML IV SCH (11:00)
--- NOTE | 2018-04-25 11:37 | NUR ---
DR CODY INFORMED OF PATIENT'S HR 47-58. WILL FOLLOW UP.
--- NOTE | 2018-04-25 11:50 | NUR ---
PT STATED SHE IS HALLUCINATING AND SEES FEATHERS AND PEOPLE IN THE ROOM WHEN CLOSES EYES. DR. CODY MADE AWARE. WILL FOLLOW UP AND CONTINUE TO MONITOR.
--- NOTE | 2018-04-25 11:57 | NUR ---
ST EVALUATION AT BEDSIDE. PT ABLE TO FOLLOW COMMANDS. NO DISTRESS NOTED. VSS.
--- NOTE | 2018-04-25 12:04 | NUR ---
NGT DISCONTINUED. PT TOLERATED WELL.
--- NOTE | 2018-04-25 12:10 | NUR ---
Speech Pathology Bedside Swallow eval completed. Please see report for details. Pt presents with mild oral dysphagia c/b difficulty with mastication of solids, likely due to general weakness and poor dental condition. No overt s/s aspiration observed. Pt is able to self-feed with min assist. Recommend: 1) Advance to mechanical soft ground diet, thin liquids ok. Straws ok. 2) P.O. meds as tolerated. 3) Nsg to assist w/ tray set up to promote self-feeding. No further tx indicated at this time. DC to nsg care. Time [id number]
[2018-04-25] MEDS ORDERED: QUEtiapine FUMARATE 25 MG TAB PO SCH (13:16)
[2018-04-25] MEDS ORDERED: SIMETHICONE 40 MG/0.6 ML PO PRN (14:10)
--- NOTE | 2018-04-25 14:36 | NUR ---
EEG BEING DONE AT BEDSIDE. VSS. NO SIGNS OF DISTRESS NOTED. WILL CONTINUE TO MONITOR.
--- NOTE | 2018-04-25 17:20 | NUR ---
PT SEEN BY DR. RAMON. WILL FOLLOW UP ON ORDERS.
--- NOTE | 2018-04-25 18:30 | NUR ---
PT TRANSFERRED TO TELEMETRY ROOM 108B. REPORT GIVEN TO ROBBIE JOHNSON AT BEDSIDE. PT IS IN STABLE CONDITION.
--- NOTE | 2018-04-25 18:35 | NUR ---
RECEIVED BEDSIDE REPORT FROM ICU SHIFT NURSE. PT IS AAOX3, ABLE TO FOLLOW SIMPLE COMMANDS AND MAKE NEEDS KNOWN. VITALS STABLE. AFEBRILE. NO C/O PAIN OR DISCOMFORT. LUNGS CTA. ON TELE MONITOR. F/C IN PLACE DRAINING URINE. IV SITE PATENT AND ASYMPTOMATIC, INFUSING IVF PER MD ORDERS. SKIN INTACT. PT IS AMBULATORY WITH ASSIST, WILL BE ON BEDREST. ALL SAFETY PRECAUTIONS IN PLACE, WILL CONTINUE TO MONITOR.
--- NOTE | 2018-04-25 19:17 | NUR ---
ENDORSED POC TO COMPLIANCE ATTORNEY RN. PT IN STABLE CONDITION.
--- NOTE | 2018-04-25 19:18 | NUR ---
RECEIVED BEDSIDE REPORT FROM AM SHIFT. PT IS AAOX3, ABLE TO FOLLOW SIMPLE COMMANDS AND MAKE NEEDS KNOWN. VITALS STABLE. AFEBRILE. NO C/O PAIN OR DISCOMFORT. ON TELE MONITOR. F/C IN PLACE DRAINING CLEAR YELLOW URINE . IV SITE PATENT AND ASYMPTOMATIC, INFUSING IVF PER MD ORDERS. SKIN INTACT.PT ON BEDREST ALL SAFETY PRECAUTIONS IN PLACE, WILL CONTINUE TO MONITOR
--- NOTE | 2018-04-25 20:37 | NUR ---
DR. PIERRE CALLED FOR BLOOD SUGAR 114MG/DL.BEYOND THE BLOOD SUGAR PROTOCOL. SHE ORDERED TO GIVE PT 10 UNITS OF HUMALOG
[2018-04-25] MEDS: levETIRAcetam 100 MG/ML ORASYR NG SCH (20:47)
[2018-04-25] MEDS: QUEtiapine FUMARATE 25 MG TAB PO SCH (20:48)
--- NOTE | 2018-04-25 21:44 | NUR ---
DR. CONNORS CALLED ASKING FOR AN UPDATE OF THE EEG. SHE ASKED DR. PIERRE TO UPDATE HER.
[2018-04-25] MEDS ORDERED: NACL 0.9% 1,000 ML IV SCH (23:15)
[2018-04-25] MEDS ORDERED: NACL 0.45% 1,000 ML IV SCH (23:35)
--- NOTE | 2018-04-25 23:35 | NUR ---
INFORMED DR. PIERRE THAT IVF EARLIER WAS D5%1000 ML. SHE WILL CHANGE IT SINCE PT AT 2100 HAD A BLOOD GLUCOSE LEVEL OF 414MG/DL.
--- NOTE | 2018-04-25 23:45 | NUR ---
DISCARDED THE ORDER FOR NACL IVF SINCE PHARMACY CALLED THAT NA LEVEL IS 148. DR. PIERRE CHANGED TO /2 NS IVF. CARRIED IT OUT
[2018-04-26] MEDS: BLOOD GLUCOSE MONITORING 1 DEV DEV FS SCH ×6 (00:22→21:40)
[2018-04-26] MEDS: INSULIN LISPRO SLIDING SCALE 100 UNITS/ML VIAL SUBQ PRN ×6 (00:26→21:02)
--- NOTE | 2018-04-26 00:26 | NUR ---
INFORMED DR. YORDY PEDERSON BS ID [id number]/DL. AWARE WE GAVE PT ANOTHER ADDITIONAL 8 UNITS OF HUMALOG.
[2018-04-26 04:00] VITALS: BP 111/44
[2018-04-26] MEDS: LEVOTHYROXINE 0.088 MG TAB PO SCH (06:18)
[2018-04-26 06:31] LABS: BASOPHILS % (AUTO) 0.3 % (0.0-2.0); EOSINOPHILS # (AUTO) 0.5 K/uL (0-0.4); EOSINOPHILS % (AUTO) 4.7 % (0.0-4.0); HEMATOCRIT 25.1 % (36-48); HEMOGLOBIN 8.2 g/dL (12.0-16.0); LYMPHOCYTES # (AUTO) 3.6 K/uL (2.5-16.5); LYMPHOCYTES % (AUTO) 33.8 % (20.5-51.1); MEAN CORPUSCULAR HEMOGLOBIN 35 pg (27-31); MEAN CORPUSCULAR HGB CONC 33 g/dL (33-37); MEAN CORPUSCULAR VOLUME 105.3 fL (80-94); MONOCYTES # (AUTO) 1.1 K/uL (0.8-1.0); NEUTROPHILS # (AUTO) 5.5 K/uL (1.8-7.7); NEUTROPHILS % (AUTO) 51.2 % (42.2-75.2); PLATELET COUNT (AUTO) 109 K/uL (140-450); RED BLOOD CELL COUNT(AUTO) 2.38 MIL/uL (4.20-5.40); RED CELL DISTRIBUTION WIDTH 15.1 % (11.6-13.7); WHITE BLOOD COUNT (AUTO) 10.7 K/uL (4.8-10.8)
[2018-04-26 07:25] LABS: ANION GAP 5.4 (8-16); CARBON DIOXIDE 27.8 mmol/L (21-32); CREATININE 0.9 mg/dL (0.6-1.3); POTASSIUM 3.2 mmol/L (3.5-5.1)
--- NOTE | 2018-04-26 07:28 | NUR ---
ENDORSED TO NEXT SHIFT WITH STABLE VITAL SIGNS AND STABLE CONDITION. FOR CONTINUITY OF CARE.
--- NOTE | 2018-04-26 07:30 | NUR ---
RECEIVED PT FROM [employer] MANAGER NURSE, PT IS AWAKE AND LYING ON THE BED WITH SIDE RAILS UP AND CALL LIGHT WITHIN REACH, FALL AND SAFETY PRECAUTION ENFORCED, BED IN LOW POSITION, PT HAS A PERIPHERAL LINE ON THE RT HAND G. 22 WITH 1/2 NS AT 100ML/HR, INFUSING, INTACT. PT HAS ANOTHER IV LINE ON THE LEFT IJ G.28, ON SALINE LOCK. PT DENIES PAIN AND NO SOB NOTED. NO SIGN OF DISTRESS NOTED AND WILL CONTINUE TO MONITOR PT.
[2018-04-26 08:00] VITALS: BP 117/54
[2018-04-26] MEDS ORDERED: FERROUS SULFATE 300 MG/5 ML UDC NG SCH (08:00)
[2018-04-26] MEDS ORDERED: FERROUS SULFATE 325 MG TABEC PO SCH (08:00)
[2018-04-26 08:28] LABS: MAGNESIUM 1.5 mg/dL (1.8-2.4); PHOSPHORUS 2.4 mg/dL (2.5-4.9)
--- NOTE | 2018-04-26 08:38 | NUR ---
DR. HOLLINGSWORTH CAME TO PT'S ROOM AND SPOKE TO PT, DR. HOLLINGSWORTH ORDERED TO STOP THE IVF OF PT.
--- NOTE | 2018-04-26 08:40 | NUR ---
STOPPED PT'S IVF NOW.
[2018-04-26] MEDS ORDERED: ASCORBIC ACID 500 MG/5 ML ORASYR NG SCH (09:00)
[2018-04-26] MEDS ORDERED: MAG SULF 2000 MG/WATER PREMIX 50 ML IV SCH (09:00)
[2018-04-26] MEDS ORDERED: INSULIN LANTUS 100 UNITS/ML 10 ML VIAL SUBQ SCH (09:00)
[2018-04-26] MEDS ORDERED: NACL 0.9% 1,000 ML IV SCH (09:00)
[2018-04-26] MEDS ORDERED: POTASSIUM CHLORIDE 10 MEQ TABER PO SCH (09:00)
[2018-04-26] MEDS: SODIUM PHOS / POTASSIUM PHOS 1 PKT PDR PO SCH ×3 (09:02→17:02)
[2018-04-26] MEDS: LACTOBACILLUS RHAMNOSUS GG 1 EACH CAP PO SCH (09:03)
[2018-04-26] MEDS: ATORVASTATIN 20 MG TAB PO SCH (09:04)
[2018-04-26] MEDS: LACTULOSE 20 GM/30 ML UDC PO SCH (09:05)
[2018-04-26] MEDS: PANTOPRAZOLE 40 MG INJ VIAL IVP SCH ×2 (09:05→22:46)
[2018-04-26] MEDS: levETIRAcetam 100 MG/ML ORASYR NG SCH ×2 (09:06→20:59)
[2018-04-26] MEDS: GABAPENTIN 300 MG CAP PO SCH ×2 (09:07→20:56)
[2018-04-26] MEDS: QUEtiapine FUMARATE 25 MG TAB PO SCH ×2 (09:08→20:56)
[2018-04-26] MEDS: FUROSEMIDE 40 MG TAB PO SCH ×2 (09:16→17:00)
[2018-04-26] MEDS: LISINOPRIL 20 MG TAB PO SCH (09:16)
[2018-04-26] MEDS: HYDROCHLOROTHIAZIDE 25 MG TAB PO SCH (09:16)
[2018-04-26] MEDS: METOPROLOL 25 MG TAB PO SCH ×2 (09:17→21:00)
--- NOTE | 2018-04-26 09:20 | NUR ---
PT IS AWAKE AND VITAL SIGNS TAKEN AND IS WITHIN NORMAL LIMIT, BLOOD GLUCOSE CHECK DONE AND RESULT IS 346, 10 UNITS INSULIN WAS GIVEN AND PT TOLERATED IT, NO SIGN OF DISTRESS NOTED AND WILL MONITOR PT.
[2018-04-26] MEDS: SODIUM FERRIC GLUCONATE 125 MG in NACL 0.9% 100 ML IV SCH (09:29)
[2018-04-26] MEDS ORDERED: POTASSIUM CHLORIDE 40 MEQ, LIDOCAINE 1% 25 MG in NACL 0.9% 250 ML IV SCH (09:30)
[2018-04-26] MEDS ORDERED: KEP500L NG (10:28)
[2018-04-26] MEDS ORDERED: DOCU-299 PO (10:28)
[2018-04-26] MEDS ORDERED: LACT10SO11 PO (10:28)
[2018-04-26] MEDS ORDERED: ASCO-672 NG (10:28)
[2018-04-26] MEDS ORDERED: HUMSLIDE SUBQ (10:28)
[2018-04-26] MEDS ORDERED: FER300L PO (10:28)
[2018-04-26] MEDS ORDERED: LANTUS SUBQ (10:28)
[2018-04-26] MEDS ORDERED: LEVO0.087 PO (10:28)
[2018-04-26] MEDS ORDERED: QUET25TA46 PO (10:29)
[2018-04-26] MEDS ORDERED: METO25TA PO (10:29)
[2018-04-26] MEDS ORDERED: PHOS1PDR4 PO (10:29)
[2018-04-26] MEDS ORDERED: PANT40PD7 IVP (10:29)
[2018-04-26] MEDS ORDERED: [UNRECOGNIZED DRUG - CODE] PO (10:29)
--- NOTE | 2018-04-26 11:05 | NUR ---
[employer] Techn[employer] Note: I faxed inquiry to [facility]. Per Radhika from [facility] , patient has been accepted and may go to room 49A today, accepting physician , casey saw operator Tawanna made aware. Addendum: 04/26/18 at 1435 by Apurva Harvey SS I informed Rosaura from [facility] insurance did not approve snf placement
[2018-04-26 12:00] VITALS: BP 99/50
--- NOTE | 2018-04-26 12:26 | NUR ---
BLOOD GLUCOSE CHECK DONE AND RESULT IS 393, PT WAS GIVEN 10 INSULIN OF HUMALOG AT THE RT UA, PT TOLERATED IT AND NO SIGN OF DISTRESS NOTED. WILL MONITOR PT.
--- NOTE | 2018-04-26 12:35 | NUR ---
PT IS AWAKE AND SEATED ON THE BED WITH BOYFRIEND ON THE BEDSIDE, ORAL MEDICATION WAS GIVENA ND PT TOLERATED IT. NO SIGN OF DISTRESS NOTED AND WILL CONTINUE TO MONITOR PT.
--- NOTE | 2018-04-26 13:31 | NUR ---
PT IS AWAKE AND POTASSIUM CHLORIDE IVPB WAS STARTED ON THE LEFT IJ, WILL MONITOR PT.
--- NOTE | 2018-04-26 13:48 | NUR ---
ELEAZAR FROM CALLED AND INFORMED THAT PT WILL BE TRANSFERRED BACK TO [facility] AND THAT AMADOR FROM [facility] WILL BE CONFIRM THE TRANSPORTATION FOR PT.
--- NOTE | 2018-04-26 13:49 | NUR ---
CM NOTE FAXED ORDER FOR SNF AND PT EVAL NOTES TO [facility]. PER [facility] [employer] PH# [phone], THEIR DIRECTOR OF RESTAURANT OPERATIONS DID NOT APPROVE FOR PATIENT TO GO TO A SNF BUT INSTEAD [employer] WILL SET UP PATIENT TO GO TO THEIR OWN [facility] CENTER THAT PROVIDES PHYSICAL THERAPY FOR THEIR PATIENTS AND THAT [employer] OF [facility] WILL ALSO SET UP THE TRANSPORTATION FOR PATIENT TO GO TO THEIR [facility] PH[facility]ICAL [facility]ER[facility] C[facility]. PER [employer] SHE IS SETTING UP TRANSPORTATION TODAY FOR PATIENT TO GO BACK TO [facility] RN CASE MANAGER TIME 4:00PM. DR. ESCOBAR HERNANDEZ AND MAI AVALOS AWARE.
[2018-04-26] MEDS ORDERED: QUET50TA PO (14:46)
[2018-04-26] MEDS ORDERED: OMEP20TC12 PO (14:47)
--- NOTE | 2018-04-26 15:56 | NUR ---
PT WAS INFORMED THAT STEINBERG CATHETER WILL BE REMOVED BUT PT REFUSED TO HAVE IT REMOVED NOW AND SAID TO REMOVE IT LATER WHEN SHE IS ABOUT TO LEAVE, DR. MALDONADO WAS INFORMED AND MD SAID THAT SHE WILL RELAY TO DR. CODY.
[2018-04-26 16:00] VITALS: BP 102/56
--- NOTE | 2018-04-26 16:46 | NUR ---
AMADOR FROM [facility] CALLED AND INFORMED THAT PT WILL BE PICKED UP BY [facility] AT 2129 TODAY AND WILL BE TRANSPORTED TO [facility], ON THE SAME ROOM AND UNDER THE SAME PHYSICIAN.
--- NOTE | 2018-04-26 17:00 | NUR ---
CALLED ELIZABETH ESTEVEZ, SISTER OF PT AND INFORMED THAT PT WILL BE TRANSFERRED BACK TO [facility] TODAY AT 2129, SISTER VERBALIZED UNDERSTANDING.
--- NOTE | 2018-04-26 17:10 | NUR ---
PT IS AWAKE, V/S TAKEN AND IS WITHIN NORMAL LIMIT, BLOOD GLUCOSE CHECK DONE AND RESULT IS 353, 10 UNITS OF HUMALOG WAS GIVEN ON THE LEFT UA, PT TOLERATED IT AND NO SIGN OF DISTRESS NOTED. WILL CONTINUE TO MONITOR PT.
[2018-04-26 18:32] LABS: ANION GAP 8.4 (8-16); CARBON DIOXIDE 26.7 mmol/L (21-32); CREATININE 1.1 mg/dL (0.6-1.3); POTASSIUM 4.1 mmol/L (3.5-5.1)
--- NOTE | 2018-04-26 19:10 | NUR ---
STEINBERG CATHETER WAS REMOVED, NO SIGN OF DISTRESS NOTED. WILL ENDORSE TO ADMINISTRATIVE SPECIALIST NURSE.
--- NOTE | 2018-04-26 19:15 | NUR ---
ENDORSED PT TO FINANCIAL REPORT SERVICE SALES AGENT NURSESAGE FOR CONTINUITY OF CARE AND FACILITATE THE REST OF THE DISCHARGE PROCESS. PT IS STABLE AT THIS TIME.
--- NOTE | 2018-04-26 19:36 | NUR ---
CALLED OVIDIO PADILLA AND GAVE REPORT ABOUT THE PT TO CARLYLE VILLALTA. AMBAR VERBALIZED UNDERSTANDING OF THE REPORT AND DISCHARGE INSTRUCTIONS RELAYED REGARDING THE PT.
--- NOTE | 2018-04-26 19:40 | NUR ---
ENDORSED TO OFFICER CAPTAIN SAGE THE DISCHARGE PAPER WORKS AND INFORMED OFFICER CAPTAIN NURSE SAGE THAT REPORT WAS GIVEN TO CARLYLE [facility]ILLALTA [facility].
--- NOTE | 2018-04-26 19:41 | NUR ---
RECEIVED REPORT FROM DAYSHIFT NURSE AT BEDSIDE FOR CONTINUITY OF CARE. PT AAOX3. PT IV NOTED LIJ 18G SALINE LOCK. NO SOB NO S/S OF DISTRESS ON RA. BED LOWERED CALL LIGHT WITHIN REACH WILL CONTINUE TO MONITOR.
[2018-04-26 20:00] VITALS: BP 99/47
--- NOTE | 2018-04-26 22:00 | NUR ---
[facility] HERE TO RACING CAR DRIVER PT. GAVE REPORT ALL PAPERWORK WITH PATIENT. VITALS STABLE. REMOVED ID BAND. PT LEFT IN WHEELCHAIR. NO SOB NO S/S OF DISTRESS ON RA. PT OFF [facility] FLOOR AT 2200.
== END 2018-04-26 22:00 | disposition home or self-care (01) | DRG 100 ==
LOC: MED 05:22 → MIC 08:49 → MTU 17:50 → MIC 04-23 20:52 → MTU 04-25 18:30
PROVIDERS: ADMIT General Practice; ATTEND General Practice
PROC: 4A00X4Z Measurement of Central Nervous Electrical Activity, External Approach (ICD-10-PCS; principal; 2018-04-26)
DX: G40.909 Epilepsy, unspecified, not intractable, without status epilepticus (principal); I21.A1 Myocardial infarction type 2; E11.00 Type 2 diabetes mellitus with hyperosmolarity without nonketotic hyperglycemic-hyperosmolar coma (NKHHC); N17.0 Acute kidney failure with tubular necrosis; E43 Unspecified severe protein-calorie malnutrition; I62.00 Nontraumatic subdural hemorrhage, unspecified; E87.0 Hyperosmolality and hypernatremia; G93.40 Encephalopathy, unspecified; E86.0 Dehydration; E87.8 Other disorders of electrolyte and fluid balance, not elsewhere classified; F29 Unspecified psychosis not due to a substance or known physiological condition; K72.90 Hepatic failure, unspecified without coma; Z87.891 Personal history of nicotine dependence; Z68.21 Body mass index [BMI] 21.0-21.9, adult; E78.5 Hyperlipidemia, unspecified; E11.40 Type 2 diabetes mellitus with diabetic neuropathy, unspecified; E86.9 Volume depletion, unspecified; E03.9 Hypothyroidism, unspecified; E78.00 Pure hypercholesterolemia, unspecified; R29.6 Repeated falls; E87.6 Hypokalemia; F32.9 Major depressive disorder, single episode, unspecified; J45.909 Unspecified asthma, uncomplicated; Z60.2 Problems related to living alone; N18.9 Chronic kidney disease, unspecified; I13.10 Hypertensive heart and chronic kidney disease without heart failure, with stage 1 through stage 4 chronic kidney disease, or unspecified chronic kidney disease; E11.22 Type 2 diabetes mellitus with diabetic chronic kidney disease; E83.39 Other disorders of phosphorus metabolism; B35.1 Tinea unguium; R58 Hemorrhage, not elsewhere classified; E83.42 Hypomagnesemia; E86.1 Hypovolemia; E11.65 Type 2 diabetes mellitus with hyperglycemia; D50.9 Iron deficiency anemia, unspecified; J44.9 Chronic obstructive pulmonary disease, unspecified
CPT/HCPCS: 36415; 36600; 70450; 71045; 74018; 76700; 80048; 80053; 80305; 81001; 82009; 82140; 82150; 82272; 82607; 82728; 82746; 82803; 82948; 83036; 83540; 83605; 83690; 83735; 83880; 84100; 84436; 84439; 84443; 84479; 84484; 85018; 85025; 85045; 85610; 85730; 87040; 87081; 87086; 92610; 93005; 95816; 96361; 96365; 96372; 96375; 97110; 97116; 97530; 97799; 99291; C9113; J0133; J0290; J0696; J1815; J2001; J2060; J2270; J2543; J2916; J3370; J3411; J3475; J3480; J7030; J7060; Q0092